=== PATIENT | female | born 1980 | race Hispanic/Latino ===

== ENCOUNTER 2019-08-03 10:00 | Emergency (ER) | payer SELFPAY ==
[2019-08-03] MEDS ORDERED: METOCLOPRAMIDE 10 MG/2mL INJ ONE (11:01)
[2019-08-03] MEDS ORDERED: NA CHLORIDE 0.9% 1,000 ML ONE (11:01)
[2019-08-03] MEDS ORDERED: DIPHENHYDRAMINE 50 MG/ML VIAL ONE (11:01)
--- NOTE | 2019-08-03 12:21 | ER ---
Nurse's Notes [facility] Name: Mimi Mcfarlane Age: 38 yrs Sex: Female : 1980 Arrival Date: 08/03/2019 Time: 10:01 Bed 15 Private MD: Diagnosis: Headache Presentation: 08/03 10:06 Presenting complaint: Patient states: migraine that began yesterday. Pt reports nausea. aa5 10:06 Acuity: RODRIGO 3 aa5 10:15 Care prior to arrival: Medication(s) given: Tylenol, 1500 mg taken at 0800 this rb1 morning, and she used the Migrastil Migraine Roller. 10:15 Transition of care: patient was not received from another setting of care. Onset of rb1 symptoms was August 02, 2019. Risk Assessment: Do you want to hurt yourself or someone else? Patient reports no desire to harm self or others. Initial Sepsis Screen: Does the patient meet any 2 criteria? No. Patient's initial sepsis screen is negative. Does the patient have a suspected source of infection? No. Patient's initial sepsis screen is negative. 10:15 Method Of Arrival: Wheelchair rb1 Triage Assessment: 10:15 Headache History: The patient has had previous headaches and this one is similar to rb1 previous episodes. Pain: Also complains of nausea, photophobia, inability to concentrate. Historical: - Allergies: 10:09 PENICILLINS; aa5 10:09 Dilaudid; aa5 10:09 Biaxin; aa5 10:09 Reglan; aa5 - PMHx: 10:09 Migraines; aa5 - PSHx: 10:09 ; Cholecystectomy; Tubal ligation; aa5 - Immunization history:: Flu vaccine is not up to date. - Social history:: Smoking status: Patient uses tobacco products, 1/4 of a pack a day . - Ebola Screening: : No symptoms or risks identified at this time. Screenin:15 Abuse screen: Denies threats or abuse. Nutritional screening: No deficits noted. rb1 Tuberculosis screening: No symptoms or risk factors identified. Fall Risk None identified. Assessment: 10:15 General: Appears uncomfortable, Behavior is calm, cooperative. Pain: Complains of pain rb1 in right side of head Pain currently is 9 out of 10 on a pain scale. Pain began 1 day ago. Neuro: Level of Consciousness is awake, alert, obeys commands, Oriented to person, place, time, situation. Neuro: Reports headache in right history of migraines; similar to previous headaches. Cardiovascular: Capillary refill < 3 seconds is brisk in bilateral fingers. Respiratory: Airway is patent Respiratory effort is even, unlabored, Respiratory pattern is regular, symmetrical. GI: Reports nausea. : No signs and/or symptoms were reported regarding the genitourinary system. Derm: Skin is pink, warm \T\ dry. Musculoskeletal: Range of motion: intact in all extremities. 11:12 Reassessment: Patient appears in no apparent distress at this time. No changes from rb1 previously documented assessment. 12:10 Reassessment: Patient appears in no apparent distress at this time. Patient and/or rb1 family updated on plan of care and expected duration. Pain level reassessed. Patient is alert, oriented x 3, equal unlabored respirations, skin warm/dry/pink. Patient states feeling better. Patient states symptoms have improved. 12:38 Reassessment: Discharge pending due to IV fluids infusing. Provider wants the pt. to rb1 finish the IV fluids before being discharged. Vital Signs: 10:09 BP 123 / 77; Pulse 78; Resp 16 S; Temp 97.8(TE); Pulse Ox 100% on R/A; Weight 65.77 kg aa5 (R); Height 4 ft. 9 in. (144.78 cm) (R); Pain 9/10; 11:09 BP 127 / 88; Pulse 68; Resp 17; Pulse Ox 99% on R/A; rb1 12:09 BP 100 / 69; Pulse 82; Resp 16; Pulse Ox 100% on R/A; Pain 4/10; rb1 10:09 Body Mass Index 31.38 (65.77 kg, 144.78 cm) aa5 ED Course: 10:01 Patient arrived in ED. as 10:06 Arm band placed on. aa5 10:08 Triage completed. aa5 10:15 Patient has correct armband on for positive identification. Bed in low position. Call rb1 light in reach. Side rails up X 1. Pulse ox on. NIBP on. Warm blanket given. Pillow given. 10:22 Jan Kang PA is PHCP. donna 10:22 Baldomero Tobin MD is Attending Physician. [facility] 10:25 Susan Nava, RN is Primary Nurse. [facility] 11:02 Inserted saline lock: 22 gauge in right forearm, using aseptic technique. 3 12:47 No provider procedures requiring assistance completed. IV discontinued, intact, rb1 bleeding controlled, No redness/swelling at site. Pressure dressing applied. Administered Medications: 11:03 Drug: diphenhydrAMINE 25 mg Route: IVP; Site: right forearm; rb1 11:18 Follow up: Response: No adverse reaction rb1 11:05 Drug: NS 0.9% 1000 ml Route: IV; Rate: 1 bolus; Site: right forearm; rb1 12:46 Follow up: IV Status: Completed infusion rb1 11:05 Drug: Reglan 10 mg Route: IVP; Site: right forearm; rb1 12:46 Follow up: Response: No adverse reaction rb1 Outcome: 12:20 Discharge ordered by MD. [facility] 12:47 Discharged to home ambulatory, with significant other. [facility] 12:47 Condition: stable 12:47 Discharge instructions given to patient, Instructed on discharge instructions, follow up and referral plans. Demonstrated understanding of instructions, follow-up care, Prescriptions given X none 12:49 Patient left the ED. rb1 Signatures: Jan Kang PA PA Astrid Sevilla Audri, RN RN aa5 Susan Nava, RN RN [facility] Micki Orosco 3
--- NOTE | 2019-08-03 12:22 | EDPHYS ---
Physician Documentation [facility] Name: Mimi Mcfarlane Age: 38 yrs Sex: Female : 1980 Arrival Date: 08/03/2019 Time: 10:01 Bed 15 Private MD: ED Physician Baldomero Tobin HPI: 08/03 10:55 This 38 yrs old Female presents to ER via Unassigned with complaints of jmm Headache, Nausea. 10:55 The patient complains of pain to the left temporal area, right side of the back of jmm head, right temporal area, right side of forehead, right occipital area, right yazdanism and right eye. Onset: The symptoms/episode began/occurred gradually, 1 day(s) ago. Associated signs and symptoms: Pertinent positives: Photophobia blurred vision. Headache History: The patient has had previous headaches and this one is similar to previous episodes. The symptoms are alleviated by nothing. the symptoms are aggravated by lights, noise. This is a 38 year old female with a history of migraines that presents to the ED with complaints of right sided headache which began yesterday. Similar in character to previous migraines. . Historical: - Allergies: 10:09 PENICILLINS; aa5 10:09 Dilaudid; aa5 10:09 Biaxin; aa5 10:09 Reglan; aa5 - PMHx: 10:09 Migraines; aa5 - PSHx: 10:09 ; Cholecystectomy; Tubal ligation; aa5 - Immunization history:: Flu vaccine is not up to date. - Social history:: Smoking status: Patient uses tobacco products, 1/4 of a pack a day . - Ebola Screening: : No symptoms or risks identified at this time. ROS: 10:55 Constitutional: Negative for fever, chills, and weight loss, Cardiovascular: Negative jmm for chest pain, palpitations, and edema, Respiratory: Negative for shortness of breath, cough, wheezing, and pleuritic chest pain. 10:55 Abdomen/GI: Positive for nausea. 10:55 Neuro: Positive for headache. 10:55 All other systems are negative. Exam: 10:55 Constitutional: This is a well developed, well nourished patient who is awake, alert, jmm and in no acute distress. Head/Face: atraumatic. Eyes: EOMI, no conjunctival erythema appreciated ENT: Moist Mucus Membranes Neck: Trachea midline, Supple Chest/axilla: Normal chest wall appearance and motion. Cardiovascular: Regular rate and rhythm. No edema appreciated Respiratory: Normal respirations, no respiratory distress appreciated Abdomen/GI: Non distended, soft Back: Normal ROM Skin: General appearance color normal MS/ Extremity: Moves all extremities, no obvious deformities appreciated, no edema noted to the lower extremities Neuro: Awake and alert, normal gait Psych: Behavior is normal, Mood is normal, Patient is cooperative and pleasant Vital Signs: 10:09 BP 123 / 77; Pulse 78; Resp 16 S; Temp 97.8(TE); Pulse Ox 100% on R/A; Weight 65.77 kg aa5 (R); Height 4 ft. 9 in. (144.78 cm) (R); Pain 9/10; 11:09 BP 127 / 88; Pulse 68; Resp 17; Pulse Ox 99% on R/A; rb1 12:09 BP 100 / 69; Pulse 82; Resp 16; Pulse Ox 100% on R/A; Pain 4/10; rb1 10:09 Body Mass Index 31.38 (65.77 kg, 144.78 cm) aa5 MDM: 10:52 Patient medically screened. [facility] 12:19 Data reviewed: vital signs, nurses notes. Counseling: I had a detailed discussion with marian the patient and/or guardian regarding: the historical points, exam findings, and any diagnostic results supporting the discharge/admit diagnosis, the need for outpatient follow up, to return to the emergency department if symptoms worsen or persist or if there are any questions or concerns that arise at home. ED course: Pain is relieved in the ED. Patient states that she feels much better. Patient advised to follow up with pcp and otherwise given strict return precautions. Patient understood and agrees with the plan of care. . 08/03 10:54 Order name: Saline Lock; Complete Time: 11:05 [facility] Administered Medications: 11:03 Drug: diphenhydrAMINE 25 mg Route: IVP; Site: right forearm; rb1 11:18 Follow up: Response: No adverse reaction rb1 11:05 Drug: NS 0.9% 1000 ml Route: IV; Rate: 1 bolus; Site: right forearm; rb1 12:46 Follow up: IV Status: Completed infusion rb1 11:05 Drug: Reglan 10 mg Route: IVP; Site: right forearm; rb1 12:46 Follow up: Response: No adverse reaction rb1 Disposition: 13:22 Co-signature as Attending Physician, Baldomero Tobin MD I agree with the assessment and kdr plan of care. Disposition: 08/03/19 12:20 Discharged to Home. Impression: Headache. - Condition is Stable. - Discharge Instructions: Migraine Headache. - Medication Reconciliation Form, Thank You Letter, Antibiotic Education, Prescription Opioid Use form. - Follow up: Private Physician; When: 2 - 3 days; Reason: Recheck today's complaints, Continuance of care, Re-evaluation by your physician. Signatures: Baldomero Tobin MD MD kdr Jan Kang PA PA jmm Calderon, Audri, RN RN aa5 Susan Nava, RN RN rb1 Corrections: (The following items were deleted from the chart) 12:49 12:20 08/03/2019 12:20 Discharged to Home. Impression: Headache. Condition is Stable. rb1 Forms are Medication Reconciliation Form, Thank You Letter, Antibiotic Education, Prescription Opioid Use. Follow up: Private Physician; When: 2 - 3 days; Reason: Recheck today's complaints, Continuance of care, Re-evaluation by your physician. marian
[2019-08-03 12:54] VITALS: TEMP 97.8
[2019-08-03 12:56] VITALS: BP 100/69; O2SAT 100
== END 2019-08-03 12:49 | disposition home or self-care (01) ==
LOC: ER 10:00
DX: R51 Headache (principal); F17.210 Nicotine dependence, cigarettes, uncomplicated; Z88.0 Allergy status to penicillin; Z88.6 Allergy status to analgesic agent
CPT/HCPCS: 96361; 96374; 96375; 99284; J1200; J2765; J7030